=== PATIENT | female | born 1945 | race Caucasian/White ===

== ENCOUNTER → 2016-10-22 | Day surgery (SDC) | payer MEDICARE | END | disposition home or self-care (01) | LOC: SDCH 08:30 | DX: Z12.11 Encounter for screening for malignant neoplasm of colon (principal); K63.5 Polyp of colon; E27.9 Disorder of adrenal gland, unspecified; Z88.0 Allergy status to penicillin; Z88.8 Allergy status to other drugs, medicaments and biological substances; R53.83 Other fatigue; R12 Heartburn; M25.50 Pain in unspecified joint; M54.9 Dorsalgia, unspecified; Z91.013 Allergy to seafood; Z79.899 Other long term (current) drug therapy | CPT/HCPCS: J2704 ==